=== PATIENT | male | born 1985 | race American Indian/Alaskan Native ===

== ENCOUNTER 2017-10-26 09:53 | Emergency (ER) | payer OTHER ==
[2017-10-26 09:59] VITALS: BP 142/95
--- NOTE | 2017-10-26 11:13 | Emergency Department Report ---
<GLADIS WALDRON - Last Filed: 10/26/17 12:51> ED N/V/D HPI - General Chief complaint: Abdominal Pain Stated complaint: ABD PAIN Time Seen by Provider: 10/26/17 11:09 Source: patient Mode of arrival: Ambulatory Limitations: No Limitations - History of Present Illness Initial comments: 32-year-old male past medical history none presents with complaint of 4 days of watery diarrhea. Patient states he has had slight abdominal discomfort intermittently for the last several days. States that on Tuesday he ate chicken wings at a club when 2 and has subsequently developed intermittent abdominal discomfort with associated watery stools. Patient denies any recent travel or antibiotic use. Denies any fevers or chills. Denies any episodes of vomiting or any current nausea. Denies any radiation of pain. Denies any dysuria or increased urinary frequency or hematuria. Patient is awake alert and oriented 3 and nontoxic appearing. States he is passing gas and stool without difficulty. Patient denies any bloody stools. MD complaint: nausea, vomiting, diarrhea, abdominal pain Onset/Timin -: days(s) Description of Vomiting: food contents Description of Diarrhea: water Associated Abdominal Pain: Yes Location: diffuse Quality: cramping Consistency: intermittent Improves with: bowel movement Context: possible food poisoning Associated Symptoms: denies other symptoms - Related Data Previous Rx's Medication Instructions Recorded Last Taken Type Bismuth Subsalicylate 10 ml PO QID PRN #1 udc 10/26/17 Unknown Rx [Pepto-Bismol] Dicyclomine [Bentyl] 20 mg PO QID PRN #20 tablet 10/26/17 Unknown Rx Famotidine [Pepcid] 20 mg PO BID PRN #30 tablet 10/26/17 Unknown Rx Allergies Allergy/AdvReac Type Severity Reaction Status Date / Time No Known Allergies Allergy Unverified 10/26/17 09:59 ED Review of Systems ROS: Stated complaint: ABD PAIN Other details as noted in HPI Constitutional: denies: chills, fever Eyes: denies: eye pain, eye discharge, vision change ENT: denies: ear pain, throat pain Respiratory: denies: cough, shortness of breath, wheezing Cardiovascular: denies: chest pain, palpitations Endocrine: no symptoms reported Gastrointestinal: abdominal pain, diarrhea. denies: nausea Genitourinary: denies: urgency, dysuria Musculoskeletal: denies: back pain, joint swelling, arthralgia Skin: denies: rash, lesions Neurological: denies: headache, weakness, paresthesias Psychiatric: denies: anxiety, depression Hematological/Lymphatic: denies: easy bleeding, easy bruising ED Past Medical Hx - Past Medical History Previous Medical History?: No - Surgical History Past Surgical History?: No - Social History Smoking Status: Never Smoker Substance Use Type: Alcohol - Medications Home Medications: Home Medications Medication Instructions Recorded Confirmed Last Taken Type Bismuth Subsalicylate 10 ml PO QID PRN #1 udc 10/26/17 Unknown Rx [Pepto-Bismol] Dicyclomine [Bentyl] 20 mg PO QID PRN #20 tablet 10/26/17 Unknown Rx Famotidine [Pepcid] 20 mg PO BID PRN #30 tablet 10/26/17 Unknown Rx ED Physical Exam - General Limitations: No Limitations General appearance: alert, in no apparent distress - Head Head exam: Present: atraumatic, normocephalic - Eye Eye exam: Present: normal appearance, PERRL, EOMI Pupils: Present: normal accommodation - ENT ENT exam: Present: normal exam, mucous membranes moist - Neck Neck exam: Present: normal inspection - Respiratory Respiratory exam: Present: normal lung sounds bilaterally. Absent: respiratory distress - Cardiovascular Cardiovascular Exam: Present: regular rate, normal rhythm. Absent: systolic murmur, diastolic murmur, rubs, gallop - GI/Abdominal GI/Abdominal exam: Present: soft, normal bowel sounds - Rectal Rectal exam: Present: deferred - Extremities Exam Extremities exam: Present: normal inspection - Back Exam Back exam: Present: normal inspection - Neurological Exam Neurological exam: Present: alert, oriented X3, CN II-XII intact, normal gait - Expanded Neurological Exam Expanded Patient oriented to: Present: person, place, time Cranial nerves: EOM's Intact: Normal, Facial Sensation: Normal Sensory exam: Upper Extremity Light Touch: Normal, Lower Extremity Light Touch: Normal Motor strength exam: RUE: 5, LUE: 5, RLE: 5, LLE: 5 Best Eye Response (Galien): (4) open spontaneously Best Motor Response (Erika): (6) obeys commands Best Verbal Response (Galien): (5) oriented Erika Total: 15 - Psychiatric Psychiatric exam: Present: normal affect, normal mood - Skin Skin exam: Present: warm, dry, intact, normal color. Absent: rash ED Course Vital Signs 10/26/17 10/26/17 09:55 10:32 Temperature 98.1 F Pulse Rate 86 Respiratory 16 14 Rate Blood Pressure 142/95 O2 Sat by Pulse 98 Oximetry ED Medical Decision Making - Lab Data Result diagrams: 10/26/17 11:27 10/26/17 11:27 - Medical Decision Making A/P: Abdominal pain, gastritis 1-case discussed with Dr. Moses who also examined pt 2-vital signs are normal. Patient is tolerating by mouth food and fluid without difficulty. Has minimal tenderness on palpation 3-labs are unremarkable including lactic acid. 4- pepcid, Pepto-Bismol, Pepcid when necessary. Advised patient to return to the ED if he cannot tolerate anything by mouth if he has bloody stools or develops fevers and chills worsened pain. We offered patient option of doing CT versus more conservative measures and watchful waiting. Patient elected to watch out for concerning symptoms as described and will return to the ED if he feels worse. This is a reasonable course of action. I advised patient that if his pain worsens and he return to the ED he may need imaging then. Critical care attestation.: If time is entered above; I have spent that time in minutes in the direct care of this critically ill patient, excluding procedure time. ED Disposition Disposition: -01 TO HOME OR SELFCARE Is pt being admited?: No Does the pt Need Aspirin: No Condition: Stable Instructions: Gastritis (ED), Acute Diarrhea (ED), Abdominal Pain (ED) Prescriptions: Bismuth Subsalicylate [Pepto-Bismol] 10 ml PO QID PRN #1 udc PRN Reason: Indigestion Dicyclomine [Bentyl] 20 mg PO QID PRN #20 tablet PRN Reason: Pain , Severe (7-10) Famotidine [Pepcid] 20 mg PO BID PRN #30 tablet PRN Reason: Indigestion Referrals: [facility] [Provider Group] - 3-5 Days [facility] [Provider Group] - 3-5 Days Forms: Work/School Release Form(ED) Time of Disposition: 12:52 <EDMOND MOSES - Last Filed: 10/26/17 16:16> ED Medical Decision Making - Lab Data Result diagrams: 10/26/17 11:27 10/26/17 11:27 - Medical Decision Making I have seen and evaluated the patient. i agree with assessment as plan as written above.
[2017-10-26] MEDS ORDERED: PEPCID PO ONE (11:59)
[2017-10-26] MEDS ORDERED: LIDOCAINE VISCOUS 2% PO ONE (11:59)
[2017-10-26] MEDS ORDERED: ALUM-MAG HYDROX-SIMETH 200-200-20MG/5ML PO ONE (11:59)
[2017-10-26 12:02] LABS: Hematocrit 46.5 % (35.5-45.6); Hemoglobin 15.6 gm/dl (11.8-15.2); Mean Corpuscular HGB Conc 34 % (32-34); Mean Corpuscular Hemoglobin 32 pg (28-32); Mean Corpuscular Volume 94 fl (84-94); Platelet Count 173 K/mm3 (140-440); Red Blood Count 4.95 M/mm3 (3.65-5.03); Red Cell Distribution Width 13.2 % (13.2-15.2)
[2017-10-26 12:14] LABS: Lipase 30 units/L (13-60)
[2017-10-26 12:18] LABS: Alanine Aminotransferase 14 units/L (7-56); Albumin 4.1 g/dL (3.9-5); BUN/Creatinine Ratio 7; Bilirubin,Direct < 0.2 mg/dL (0-0.2); Blood Urea Nitrogen 7 mg/dL (9-20); Calcium 9.4 mg/dL (8.4-10.2); Hemolysis Index 5
[2017-10-26] MEDS ORDERED: NACL 0.9% 500 ML 500 ML IV ONE (12:46)
[2017-10-26 19:06] LABS: Anisocytosis 1+; Band Neutrophils # (Manual) 0.1 K/mm3; Platelet Estimate Consistent w Auto; Total Cells Counted 100
== END 2017-10-26 13:02 | disposition home or self-care (01) ==
LOC: ED 09:53
DX: R10.84 Generalized abdominal pain (principal); R19.7 Diarrhea, unspecified
CPT/HCPCS: 36415; 80048; 80074; 82140; 82150; 83690; 85007; 85025; 99283